=== PATIENT | male | born 1970 | race Caucasian/White ===

== ENCOUNTER 2020-11-19 09:55 | Inpatient (IN) ==
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
[2020-11-19] MEDS ORDERED: OPTIRAY 320 125ml IV ONE (10:09)
--- NOTE | 2020-11-19 10:23 | CT Scan Report ---
NONCONTRAST HEAD CT, HEAD & NECK CTA HISTORY: Stroke Like Symptoms, right-sided weakness, fall TECHNIQUE: Multiaxial CT images of the head were performed both before and after the intravenous admi nistration of contrast to evaluate the major cerebral vessels. Multiaxial CT images of the neck were also performed following the intravenous administration of contrast to evaluate the major cervical ve ssels. Maximum intensity projection images were also obtained. A dose lowering technique was utilized adhering to the principles of ALARA. COMPARISON: None. FINDINGS: HEAD CT: There is no mass, hematoma, midline shift, or acute infarct. No calvarial fractures identifi ed. HEAD CTA: Visualized intracranial internal carotid arteries, distal vertebral arteries, and basilar a rtery are widely patent. There is no significant stenosis, occlusion, or aneurysm seen within the kira ateral ACAs, MCAs, or client hr manager. The major dural venous sinuses appear patent. NECK CTA: The aortic arch and proximal great vessels are widely patent. There is no significant sten osis, occlusion, or dissection identified within the bilateral common carotid, internal carotid, or v ertebral arteries. A 6 mm left thyroid nodule. This does not meet CT criteria for follow-up. Scattere d metallic shrapnel again within the left side of the face, right submandibular location, and upper p revertebral soft tissues. Old nonunited fractures within the left anterior and posterior C1 arch. No acute fractures identified within the cervical spine. The distal left cervical internal carotid arter ies partially obscured by the metallic artifact. IMPRESSION: 1. 1. No acute intracranial abnormality. 2. No significant stenosis, occlusion, or aneurysm within the [place]. 3. No significant stenosis, occlusion, or dissection identified within the carotid or vertebral arter ies. 4. Old post traumatic changes as described above. ACT 112: Negative or not required by law. ACT 112: Negative or not required by law. Electronically signed by: Thad Diana M.D. 11/19/2020 10:22 AM
[2020-11-19 10:24] LABS: Basophils # (auto) 0.01 K/uL (0-0.2); Basophils % (auto) 0.2 %; Eosinophils # (auto) 0.07 K/uL (0-0.5); Eosinophils % (auto) 1.2 %; Hematocrit (blood only) 40.6 % (42-52); Hemoglobin 13.4 g/dL (14.0-18.0); Immature Granulocytes # (auto) 0.01 K/uL (0.00-0.02); Immature Granulocytes % (auto) 0.2 %; Lymphocytes # (auto) 1.49 K/uL (1.2-3.4); Lymphocytes % (auto) 26.4 %; Mean Corpuscular Hemoglobin 26.3 pg (25-34); Mean Corpuscular Volume 79.6 fL (80-100); Mean Platelet Volume 10.3 fL (7.4-10.4); Monocytes # (auto) 0.29 K/uL (0.11-0.59); Monocytes % (auto) 5.1 %; Neutrophils # (auto) 3.78 K/uL (1.4-6.5); Neutrophils % (auto) 66.9 %; Platelet Count 223 K/uL (130-400); RDW Coefficient of Variation 13.7 % (11.5-14.5); RDW Standard Deviation 39.7 fL (36.4-46.3); White Blood Count 5.65 K/uL (4.8-10.8)
--- NOTE | 2020-11-19 10:24 | CT Scan Report ---
NONCONTRAST HEAD CT, HEAD & NECK CTA HISTORY: Stroke Like Symptoms, right-sided weakness, fall TECHNIQUE: Multiaxial CT images of the head were performed both before and after the intravenous admi nistration of contrast to evaluate the major cerebral vessels. Multiaxial CT images of the neck were also performed following the intravenous administration of contrast to evaluate the major cervical ve ssels. Maximum intensity projection images were also obtained. A dose lowering technique was utilized adhering to the principles of ALARA. COMPARISON: None. FINDINGS: HEAD CT: There is no mass, hematoma, midline shift, or acute infarct. No calvarial fractures identifi ed. HEAD CTA: Visualized intracranial internal carotid arteries, distal vertebral arteries, and basilar a rtery are widely patent. There is no significant stenosis, occlusion, or aneurysm seen within the kira ateral ACAs, MCAs, or truck driver teamster. The major dural venous sinuses appear patent. NECK CTA: The aortic arch and proximal great vessels are widely patent. There is no significant sten osis, occlusion, or dissection identified within the bilateral common carotid, internal carotid, or v ertebral arteries. A 6 mm left thyroid nodule. This does not meet CT criteria for follow-up. Scattere d metallic shrapnel again within the left side of the face, right submandibular location, and upper p revertebral soft tissues. Old nonunited fractures within the left anterior and posterior C1 arch. No acute fractures identified within the cervical spine. The distal left cervical internal carotid arter ies partially obscured by the metallic artifact. IMPRESSION: 1. 1. No acute intracranial abnormality. 2. No significant stenosis, occlusion, or aneurysm within the [place]. 3. No significant stenosis, occlusion, or dissection identified within the carotid or vertebral arter ies. 4. Old post traumatic changes as described above. ACT 112: Negative or not required by law. ACT 112: Negative or not required by law. Electronically signed by: Thad Diana M.D. 11/19/2020 10:22 AM
--- NOTE | 2020-11-19 10:24 | CT Scan Report ---
NONCONTRAST HEAD CT, HEAD & NECK CTA HISTORY: Stroke Like Symptoms, right-sided weakness, fall TECHNIQUE: Multiaxial CT images of the head were performed both before and after the intravenous admi nistration of contrast to evaluate the major cerebral vessels. Multiaxial CT images of the neck were also performed following the intravenous administration of contrast to evaluate the major cervical ve ssels. Maximum intensity projection images were also obtained. A dose lowering technique was utilized adhering to the principles of ALARA. COMPARISON: None. FINDINGS: HEAD CT: There is no mass, hematoma, midline shift, or acute infarct. No calvarial fractures identifi ed. HEAD CTA: Visualized intracranial internal carotid arteries, distal vertebral arteries, and basilar a rtery are widely patent. There is no significant stenosis, occlusion, or aneurysm seen within the kira ateral ACAs, MCAs, or superintendent meter tests. The major dural venous sinuses appear patent. NECK CTA: The aortic arch and proximal great vessels are widely patent. There is no significant sten osis, occlusion, or dissection identified within the bilateral common carotid, internal carotid, or v ertebral arteries. A 6 mm left thyroid nodule. This does not meet CT criteria for follow-up. Scattere d metallic shrapnel again within the left side of the face, right submandibular location, and upper p revertebral soft tissues. Old nonunited fractures within the left anterior and posterior C1 arch. No acute fractures identified within the cervical spine. The distal left cervical internal carotid arter ies partially obscured by the metallic artifact. IMPRESSION: 1. 1. No acute intracranial abnormality. 2. No significant stenosis, occlusion, or aneurysm within the [place]. 3. No significant stenosis, occlusion, or dissection identified within the carotid or vertebral arter ies. 4. Old post traumatic changes as described above. ACT 112: Negative or not required by law. ACT 112: Negative or not required by law. Electronically signed by: Thad Diana M.D. 11/19/2020 10:22 AM
[2020-11-19 10:39] LABS: Partial Thromboplastin Ratio 0.9; Partial Thromboplastin Time 24.2 Seconds (21.0-31.0); Prothrombin Time 10.3 Seconds (9.0-12.0)
[2020-11-19 10:41] LABS: Alanine Aminotransferase 51 U/L (12-78); Albumin Level 3.3 gm/dl (3.4-5.0); Aspartate Aminotransferase 22 U/L (15-37); BUN Creatinine Ratio 12.8 (10-20); Blood Urea Nitrogen 16 mg/dl (7-18); Calcium 8.5 mg/dl (8.5-10.1); Carbon Dioxide 27 mmol/L (21-32); Chloride 101 mmol/L (98-107); Creatinine Clr Calc Pharmacy 86.5 ml/min; Est GFR (African American) 76.9 ml/min; Est GFR (Non-African American) 66.4 ml/min; Glucose 275 mg/dl (70-99); Potassium 5.3 mmol/L (3.5-5.1); Sodium 133 mmol/L (136-145)
[2020-11-19 10:46] LABS: Alkaline Phosphatase 83 U/L (45-117); Bilirubin,Total 0.2 mg/dl (0.2-1); Globulin 3.4 gm/dl (2.5-4.0); Total Protein 6.7 gm/dl (6.4-8.2); Troponin I < 0.015 ng/ml (0-0.045)
[2020-11-19] MEDS ORDERED: SODIUM CHLORIDE 0.9% 1000ML 1,000 ML IV ONE (10:52)
[2020-11-19] MEDS ORDERED: PANTOprazole 40 MG TAB PO SCH (11:30)
--- NOTE | 2020-11-19 11:32 | History & Physical Report ---
Date of Service November 19, 2020 Assessment & Plan (1) Stroke: Plan: Right sided weakness, left sided facial droop- deemed not tPA candidate via [facility] - Improving NIHSS- currently 2- dysarthria and left sided facial droop - strength and sensation equal upper and lower bilaterally - no visual field deficits - ASA and Plavix started- continue daily - Atorvastatin 20mg- increase to 40mg daily - Continue with glucose control- HGBA1c pending - goal <180 - Allow permissive HTN tonight- hold lisinopril - No acute findings on CT/CTA of the head and neck - Unable to obtain MRI - Repeat CT scan likely tomorrow - ANDROID SOFTWARE ENGINEER consult for dysphagia screening with continued facial droop- advance diet to carb consistent when able - ECHO - Neurology consult - Telemetry for 24 hours evaluate for afib (2) HTN (hypertension): Plan: As above (3) DMII (diabetes mellitus, type 2): Plan: Continue glargine 20 units daily - sliding scale aspart 100-140 with CF 20, ratio 1:10 - adjust as needed for goal <180 - Hold Metformin (4) HLD (hyperlipidemia): Plan: Increase Atorvastatin to 40mg daily (5) Depression: Plan: Continue Abilify Continue duloxetine (6) Antisocial behaviour: Plan: As above (7) Obesity: Plan: Continue weight loss efforts as outpatient to modify rat exterminator CVD risks. History of Present Illness Primary Care Provider: GIOVANNI Cruz 50 YOM with past medical history of: HLD, opiod abuse, persistent depressive disorder, antisocial personality disorder, neuroleptic induced parkinsonism, DM II on insulin, HLD, Gastritis and obesity. Patient comes in today from [facility] via EMS for concerns of weakness and fall. The patient was a stroke alert on arrival. The patient reports getting up this morning and having some right arm and leg weakness, he does not recall the time- but it is reported that this was around 8AM. He reports going to go to restroom and brush his teeth where he then slipped on some water and fell and hit the left side of his head. In the EMD the patient had CTA of the head and neck performed, CT of the head, CXR, ECG done and telestroke consult with [facility]. He was not a tPA candidate secondary to resolving symptoms and likely time known well. CTA of the neck and head did not reveal any acute intracranial abnormality, stenosis, occlusion, or aneurysm. Patient does have history of shrapnel to the face and an old nonuni jose cruz fracture within the left anterior posterior C1. Patient remains with some left sided facial droop. Appears his weakness has resolved. Currently he has a NIHSS of 2 with facial droop and mild dysarthria. Patient was given ASA in the EMD, will continue aspirin and start Plavix. Patient will be admitted to telemetry for 24 hours to evaluate rhythm, ECHO and neurology consult. Patient will remain NPO until evaluated by ANDROID SOFTWARE ENGINEER. He is noted to have shrapnel to his face, and this will exclude him from getting an MRI. Patient has had his COVID vaccine and his COVID test on admission is: NEGATIVE Allergies Allergy/AdvReac Type Severity Reaction Status Date / Time No Known Drug Allergies Allergy . Unverified 11/19/20 11:06 Home Medications Medication Instructions Recorded Confirmed Type Semglee U-100 Insulin 20 unit SUBCUT QAM 11/19/20 11/19/20 History aripiprazole 10 mg tablet (Abilify) 10 mg PO HS 11/19/20 11/19/20 History aripiprazole 2 mg tablet (Abilify) 2 mg PO HS 11/19/20 11/19/20 History duloxetine 60 mg capsule,delayed 120 mg PO HS 11/19/20 11/19/20 History release insulin regular human 100 unit/mL 1 sliding scale dose SUBCUT 11/19/20 11/19/20 History injection solution (Novolin R USEASDIRECTD Regular U-100 Insulin) lisinopril 5 mg tablet 5 mg PO DAILY 11/19/20 11/19/20 History metformin 1,000 mg tablet 1,000 mg PO BID 11/19/20 11/19/20 History mirtazapine 45 mg tablet 45 mg PO HS 11/19/20 11/19/20 History omeprazole 20 mg capsule,delayed 20 mg PO DAILY 11/19/20 11/19/20 History release aspirin 81 mg tablet,delayed 81 mg PO QAM #30 tab 11/20/20 Rx release atorvastatin 20 mg tablet 40 mg PO HS #0 tab 11/20/20 11/19/20 Rx Past Med/Surg History Medical History (Updated 11/20/20 @ 10:15 by Palomo Alvarez MD) Antisocial behaviour Depression DMII (diabetes mellitus, type 2) HLD (hyperlipidemia) HTN (hypertension) Obesity Surgical History (Updated 11/19/20 @ 11:48 by ALFREDO Adame) H/O hernia repair Family History (Updated 11/19/20 @ 12:05 by ALFREDO Adame) Other Family history non-contributory Social History Smoking Status: Current every day smoker Tobacco Type: Cigarettes Cigarettes Per Day: 1 e cig per day for 2 years.; Second Hand Exposure: Yes; Hx Alcohol Use: No Hx Substance Use: No Preferred Language: Azeri Communication Ability: Effective [place] Nurse Required: No Beliefs That Will Affect Care: None Current Living Situation: Other Current Living Situation Comment: correctional facility. Feels Safe at Home: Yes Assistive Devices: None Review of Systems Review of Systems: REVIEW OF SYSTEMS: Constitutional: No fever, sweats or chills Eyes: No diplopia, no worsening or blurred vision ENT: normal hearing, no trouble swallowing Respiratory: No cough, sputum, dyspnea at rest or on exertion Cardiovascular: No chest pain, tightness or palpitations Abdomen: No pain, nausea, vomiting, diarrhea or constipation Musculoskeletal: No joint pain, calf pain, swelling Neurologic: (+) weakness, numbness/tingling, or balance problems Psychiatric:(+) depression Skin: No rash or itch Physical Exam Physical Exam: PHYSICAL EXAM: General: awake, alert, no apparent distress Head: Normocephalic, atraumatic ENT: PERRLA, EOMI, no pharyngeal exudate, mucous membranes moist Neuro: AAO x 3, mild dysarthria without aphasia strength intact bilaterally 5/5, sensation intact and equal all extremities and dermatomes, no pronator drift, no overshoot with finger to nose, no discoordination, no difficulty reading or object recall. Left sided facial droop. Chest: equal rise and fall of the chest, no accessory muscle use, no heaves or thrills, Clear to auscultation, on room air, Cardiac: Regular rate and rhythm, telemetry reviewed, skin warm dry, cap refill <3 seconds, peripheral pulses +2 no JVD, no murmur, no edema GI: NABS x 4 quadrants, soft, nontender to palpation, no rebound, guarding or tenderness : Spontaneously voiding, no pain, no CVA tenderness, Extremities: Normal inspection, no peripheral edema or erythema, calfs nontender to palpation Psych: Normal mood and affect Skin: no rash or erythema Results & Data Results & Data ([facility]) Vital Signs (Past 12 Hours) Vital Signs Temp Pulse Resp BP Pulse Ox 11/19/20 11:01 104 H 15 157/85 H 96 11/19/20 10:30 114 H 18 158/105 H 96 11/19/20 09:55 37.4 C 120 H 16 143/105 H 96 Laboratory Results Abnormal lab results 11/19/20 11/19/20 11/19/20 Range/Units 10:14 10:15 10:15 Hgb 13.4 L (14.0-18.0) g/dL Hct 40.6 L (42-52) % MCV 79.6 L (80-100) fL Sodium 133 L (136-145) mmol/L Potassium 5.3 H (3.5-5.1) mmol/L Glucose 275 H (70-99) mg/dl POC Glucose 268 H (70-99) mg/dl Albumin 3.3 L (3.4-5.0) gm/dl Diagnostic Findings Head CT 11/19/20 09:[address], HEAD & NECK CTA HISTORY: Stroke Like Symptoms, right-sided weakness, fall TECHNIQUE: Multiaxial CT images of the head were performed both before and after the intravenous administration of contrast to evaluate the major cerebral vessels. Multiaxial CT images of the neck were also performed following the intravenous administration of contrast to evaluate the major cervical vessels. Maximum intensity projection images were also obtained. A dose lowering alexei hnique was utilized adhering to the principles of ALARA. COMPARISON: None. FINDINGS: HEAD CT: There is no mass, hematoma, midline shift, or acute infarct. No calvarial fractures identified. HEAD CTA: Visualized intracranial internal carotid arteries, distal vertebral arteries, and basilar artery are widely patent. There is no significant stenosis, occlusion, or aneurysm seen within the bilateral ACAs, MCAs, or interpretive program coordinator. The major dural venous sinuses appear patent. NECK CTA: The aortic arch and proximal great vessels are widely patent. There is no significant stenosis, occlusion, or dissection identified within the bilateral common carotid, internal carotid, or vertebral arteries. A 6 mm left thyroid nodule. This does not meet CT criteria for follow-up. Scattered metallic shrapnel again within the left side of the face, right submandibular location, and upper prevertebral soft tissues. Old nonunited fractures within the left anterior and posterior C1 arch. No acute fractures identified within the cervical spine. The distal left cervical internal carotid arteries partially obscured by the metallic artifact. IMPRESSION: 1. 1. No acute intracranial abnormality. 2. No significant stenosis, occlusion, or aneurysm within the [place]. 3. No significant stenosis, occlusion, or dissection identified within the carotid or vertebral arteries. 4. Old post traumatic changes as described above. ACT 112: Negative or not required by law. ACT 112: Negative or not required by law. Electronically signed by: Thad Diana M.D. 11/19/2020 10:22 AM Head CTA 11/19/20 09:[address], HEAD & NECK CTA HISTORY: Stroke Like Symptoms, right-sided weakness, fall TECHNIQUE: Multiaxial CT images of the head were performed both before and after the intravenous administration of contrast to evaluate the major cerebral vessels. Multiaxial CT images of the neck were also performed following the intravenous administration of contrast to evaluate the major cervical vessels. Maximum intensity projection images were also obtained. A dose lowering technique was utilized adhering to the principles of ALARA. COMPARISON: None. FINDINGS: HEAD CT: There is no mass, hematoma, midline shift, or acute infarct. No calvarial fractures identified. HEAD CTA: Visualized intracranial internal carotid arteries, distal vertebral arteries, and basilar artery are widely patent. There is no significant stenosis, occlusion, or aneurysm seen within the bilateral ACAs, MCAs, or interpretive program coordinator. The major dural venous sinuses appear patent. NECK CTA: The aortic arch and proximal great vessels are widely patent. There is no significant stenosis, occlusion, or dissection identified within the bilateral common carotid, internal carotid, or vertebral arteries. A 6 mm left thyroid nodule. This does not meet CT criteria for follow-up. Scattered metallic shrapnel again within the left side of the face, right submandibular location, and upper prevertebral soft tissues. Old nonunited fractures within the left anterior and posterior C1 arch. No acute fractures identified within the cervical spine. The distal left cervical internal carotid arteries partially obscured by the metallic artifact. IMPRESSION: 1. 1. No acute intracranial abnormality. 2. No significant stenosis, occlusion, or aneurysm within the [place]. 3. No significant stenosis, occlusion, or dissection identified within the carotid or vertebral arteries. 4. Old post traumatic changes as described above. ACT 112: Negative or not required by law. ACT 112: Negative or not required by law. Electronically signed by: Thad Diana M.D. 11/19/2020 10:22 AM Neck CTA 11/19/20 09:[address], HEAD & NECK CTA HISTORY: Stroke Like Symptoms, right-sided weakness, fall TECHNIQUE: Multiaxial CT images of the head were performed both before and after the intravenous administration of contrast to evaluate the major cerebral vessels. Multiaxial CT images of the neck were also performed following the intravenous administration of contrast to evaluate the major cervical vessels. Maximum intensity projection images were also obtained. A dose lowering technique was utilized adhering to the principles of ALARA. COMPARISON: None. FINDINGS: HEAD CT: There is no mass, hematoma, midline shift, or acute infarct. No calvarial fractures identified. HEAD CTA: Visualized intracranial internal carotid arteries, distal vertebral arteries, and basilar artery are widely patent. There is no significant stenosis, occlusion, or aneurysm seen within the bilateral ACAs, MCAs, or interpretive program coordinator. The major dural venous sinuses appear patent. NECK CTA: The aortic arch and proximal great vessels are widely patent. There is no significant stenosis, occlusion, or dissection identified within the bilateral common carotid, internal carotid, or vertebral arteries. A 6 mm left thyroid nodule. This does not meet CT criteria for follow-up. Scattered metallic shrapnel again within the left side of the face, right submandibular location, and upper prevertebral soft tissues. Old nonunited fractures within the left anterior and posterior C1 arch. No acute fractures identified within the cervical spine. The distal left cervical internal carotid arteries partially obscured by the metallic artifact. IMPRESSION: 1. 1. No acute intracranial abnormality. 2. No significant stenosis, occlusion, or aneurysm within the [place]. 3. No significant stenosis, occlusion, or dissection identified within the carotid or vertebral arteries. 4. Old post traumatic changes as described above. ACT 112: Negative or not required by law. ACT 112: Negative or not required by law. Electronically signed by: Thad Diana M.D. 11/19/2020 10:22 AM Medications Administered Home Medications Semglee U-100 Insulin 20 unit SUBCUT QAM 11/19/20 [History Confirmed 11/19/20] aripiprazole 10 mg tablet (Abilify) 10 mg PO HS 11/19/20 [History Confirmed 11/19/20] aripiprazole 2 mg tablet (Abilify) 2 mg PO HS 11/19/20 [History Confirmed 11/19/20] atorvastatin 20 mg tablet 20 mg PO HS 11/19/20 [History Confirmed 11/19/20] duloxetine 60 mg capsule,delayed release 120 mg PO HS 11/19/20 [History Confirmed 11/19/20] insulin regular human 100 unit/mL injection solution (Novolin R Regular U-100 Insulin) 1 sliding scale dose SUBCUT USEASDIRECTD 11/19/20 [History Confirmed 11/19/20] lisinopril 5 mg tablet 5 mg PO DAILY 11/19/20 [History Confirmed 11/19/20] metformin 1,000 mg tablet 1,000 mg PO BID 11/19/20 [History Confirmed 11/19/20] mirtazapine 45 mg tablet 45 mg PO HS 11/19/20 [History Confirmed 11/19/20] omeprazole 20 mg capsule,delayed release 20 mg PO DAILY 11/19/20 [History Confirmed 11/19/20] Active Medications Sodium Chloride (Nss 1000ml) 1,000 mls @ 999 mls/hr IV .Q1H1M ONE Stop: 11/19/20 11:52 Last Admin: 11/19/20 11:08 Dose: 999 mls/hr Documented by: Insulin Glargine (Lantus Per Unit Charge) 20 units SQ QAM [facility] Stop: 12/20/20 08:59 Pantoprazole Sodium (Pantoprazole 40 Mg Tab) 20 mg PO DAILY [facility] Stop: 12/19/20 11:29 Discontinued Medications Sodium Chloride (Nss 1000ml) 1,000 mls @ 999 mls/hr IV .Q1H1M ONE Stop: 11/19/20 11:52 Last Admin: 11/19/20 11:08 Dose: 999 mls/hr Documented by: [id number] Ioversol (Optiray 320 125ml) 120 ml IV ONCE ONE Stop: 11/19/20 10:10 Last Admin: 11/19/20 10:09 Dose: 120 ml Documented by: [id number] Additional Comments: Sinus tachycardia Low voltage QRS Borderline ECG No previous ECGs available Code Status & VTE Plan Code Status CODE: FULL VTE: SCDs, asa, plavix, ambulation VTE Prophylaxis Plan VTE Prophylaxis will be ordered: Yes Supervising Physician Co-Signing Physician Notes Attending addendum: I have physically seen this patient, have supervised the KURTIS's activities, and agree with the H&P unless as otherwise noted. Assessment and Plan: Stroke/right-sided weakness/left-sided facial droop- The patient will be admitted to telemetry for serial cardiac enzymes, serial EKG's, cardiac rhythm monitoring and a 2-D echocardiogram with Dopplers. Not a TPA candidate per [facility] stroke neurology Admit to monitored bed with stroke that TPA order set Consult PT/OT/speech therapy/neurology Increase atorvastatin from 20 to 40 mg daily Continue aspirin and Plavix Permissive hypertension overnight Repeat CT scan in 24 hours Diabetes mellitus- Insulin glargine 20 units subcu daily Placed on Accu-Cheks before meals and at bedtime with NovoLog coverage per scale Hold Metformin Check hemoglobin A1c Hyperlipidemia- As noted above increase atorvastatin from 20 to 40 mg daily Check a fasting lipid panel Remaining orders and notations as noted PG Care Time/CCT Total # of Minutes Spent Total Time Spent with Patient: Total time spent is greater than 50% in coordination of care (as documented) at patient's floor/unit and/or counseling patient: Coding Level of Care Code 74502 Initial Inpt Care Lvl 3 Diagnoses Stroke I63.9 HTN (hypertension) I10 DMII (diabetes mellitus, type 2) E11.9 HLD (hyperlipidemia) E78.5 Depression F32.A Antisocial behaviour Obesity E66.9
[2020-11-19] MEDS ORDERED: CARBOHYDRATES FOR HYPOGLYCEMIA PO PRN (20:08)
[2020-11-19] MEDS ORDERED: PHARMACIST DISCHARGE MED REC CONSULT PRN (20:08)
[2020-11-19] MEDS ORDERED: GLUCOSE 40% GEL 15 GM TUBE PO PRN (20:08)
[2020-11-19] MEDS ORDERED: GLUCOSE 10 TABS/TUBE PO PRN (20:08)
[2020-11-19] MEDS ORDERED: ONDANSETRON INJ 2 MG/ML 2 ML VIAL IV PRN (20:08)
[2020-11-19] MEDS ORDERED: CLOPIDOGREL BISULFATE 75 MG TAB PO SCH (20:08)
[2020-11-19] MEDS ORDERED: ACETAMINOPHEN 325 MG TAB PO PRN (20:08)
[2020-11-19] MEDS ORDERED: DEXTROSE 50% 50 ML SYRINGE IV PRN (20:08)
[2020-11-19] MEDS ORDERED: GLUCAGON FOR INJ 1 MG VIAL SQ PRN (20:08)
[2020-11-19] MEDS ORDERED: ARIPIprazole 1 MG/ML ORAL SOLN 150 ML BTL PO SCH (21:00)
[2020-11-19] MEDS ORDERED: MIRTAZAPINE SOLTAB 15 MG PO SCH (21:00)
[2020-11-19] MEDS ORDERED: DULoxetine HCL 60 MG CAP PO SCH (21:00)
[2020-11-19] MEDS ORDERED: ATORVASTATIN 40 MG TAB PO SCH (21:00)
[2020-11-19] MEDS: INSULIN ASPART 100 UNITS/ML 3 ML PEN SC SCH ×2 (21:46→21:47)
[2020-11-20 06:19] LABS: Basophils # (auto) 0.01 K/uL (0-0.2); Basophils % (auto) 0.1 %; Eosinophils # (auto) 0.11 K/uL (0-0.5); Eosinophils % (auto) 1.6 %; Hematocrit (blood only) 41.7 % (42-52); Hemoglobin 14.9 g/dL (14.0-18.0); Immature Granulocytes # (auto) 0.01 K/uL (0.00-0.02); Immature Granulocytes % (auto) 0.1 %; Lymphocytes # (auto) 2.95 K/uL (1.2-3.4); Lymphocytes % (auto) 43.3 %; Mean Corpuscular Hemoglobin 28.4 pg (25-34); Mean Corpuscular Hgb Conc 35.7 g/dL (32-36); Mean Corpuscular Volume 79.4 fL (80-100); Mean Platelet Volume 10.3 fL (7.4-10.4); Monocytes # (auto) 0.41 K/uL (0.11-0.59); Neutrophils # (auto) 3.33 K/uL (1.4-6.5); Neutrophils % (auto) 48.9 %; Platelet Count 227 K/uL (130-400); RDW Coefficient of Variation 13.7 % (11.5-14.5); RDW Standard Deviation 39.1 fL (36.4-46.3); Red Blood Count 5.25 M/uL (4.7-6.1); White Blood Count 6.82 K/uL (4.8-10.8)
[2020-11-20 07:00] LABS: BUN Creatinine Ratio 12.8 (10-20); Calcium 8.4 mg/dl (8.5-10.1); Creatinine Clr Calc Pharmacy 101.7 ml/min; Est GFR (African American) 93.6 ml/min; Est GFR (Non-African American) 80.7 ml/min; Magnesium 2.2 mg/dl (1.8-2.4); Potassium 4.3 mmol/L (3.5-5.1)
[2020-11-20 07:30] LABS: Estimated Average Glucose 223 mg/dl; Hemoglobin A1C 9.4 % (4.5-5.6)
--- NOTE | 2020-11-20 08:29 | Hospitalist Progress Note ---
Date of Service November 20, 2020 Assessment & Plan (1) Stroke: Plan: Right sided weakness, left sided facial droop- deemed not tPA candidate via [facility] telestroke - Improving NIHSS- currently 2- dysarthria and left sided facial droop - strength and sensation equal upper and lower bilaterally - no visual field deficits - ASA and Plavix started- continue daily - Atorvastatin 20mg- increase to 40mg daily - Continue with glucose control- HGBA1c pending - goal <180 - Allow permissive HTN tonight- hold lisinopril - No acute findings on CT/CTA of the head and neck - Unable to obtain MRI due to shrapnel in face - Repeat CT scan likely tomorrow - DOUBLE HEAD MACHINE OPERATOR consult for dysphagia screening with continued facial droop- advance diet to carb consistent when able - ECHO - Neurology consult - Telemetry for 24 hours evaluate for afib (2) HTN (hypertension): Plan: As above (3) DMII (diabetes mellitus, type 2): Plan: Continue glargine 20 units daily - sliding scale aspart 100-140 with CF 20, ratio 1:10 - adjust as needed for goal <180 - Hold Metformin (4) HLD (hyperlipidemia): Plan: Increase Atorvastatin to 40mg daily (5) Depression: Plan: Continue Abilify Continue duloxetine (6) Antisocial behaviour: Plan: As above (7) Obesity: Plan: Continue weight loss efforts as outpatient to modify rat exterminator CVD risks. Admission and Anticipated Discharge Date Admission Date: November 19, 2020 Results & Data Results & Data ([facility]) Vital Signs (Past 12 Hours) Vital Signs Temp Pulse Pulse Resp BP Pulse Ox 11/20/20 07:29 98.4 F 87 18 137/72 95 11/20/20 03:29 97.7 F 93 H 16 155/88 H 94 11/19/20 22:35 97.3 F L 67 16 180/82 H 95 11/19/20 22:19 100 H PG Care Time/CCT Total # of Minutes Spent Total Time Spent with Patient: Total time spent is greater than 50% in coordination of care (as documented) at patient's floor/unit and/or counseling patient: Coding Diagnoses Stroke I63.9 HTN (hypertension) I10 Hypertension type: unspecified DMII (diabetes mellitus, type 2) E11.9 Diabetes mellitus rat exterminator insulin use: with rat exterminator use HLD (hyperlipidemia) E78.5 Depression F32.A Antisocial behaviour Obesity E66.9 (1) HTN (hypertension) Hypertension type: unspecified Qualified Code(s): I10 - Essential (primary) hypertension (2) DMII (diabetes mellitus, type 2) Diabetes mellitus snf insulin use: with snf use
[2020-11-20] MEDS ORDERED: PANTOprazole 40 MG TAB PO SCH (09:00)
[2020-11-20] MEDS ORDERED: INSULIN GLARGINE SOLOSTAR 100 UNITS/ML 3 ML PEN SQ SCH (09:00)
[2020-11-20] MEDS ORDERED: ASPIRIN 81 MG ECTAB PO SCH (09:00)
[2020-11-20] MEDS ORDERED: LANTUS PER UNIT CHARGE SQ SCH (09:00)
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
[2020-11-20] MEDS: INSULIN ASPART 100 UNITS/ML 3 ML PEN SC SCH ×2 (11:10→13:08)
[2020-11-20] MEDS: PANTOprazole 40 MG in SYRINGE 0 ML IV SCH ×2 (11:11→13:04)
--- NOTE | 2020-11-20 13:02 | XCELERA ---
[id number]
--- NOTE | 2020-11-20 17:09 | Electrocardiogram Report ---
Test Reason : Blood Pressure : / mmHG Vent. Rate : 109 BPM Atrial Rate : 109 BPM P-R Int : 152 ms QRS Dur : 084 ms QT Int : 306 ms P-R-T Axes : 044 005 066 degrees QTc Int : 412 ms Sinus tachycardia Low voltage QRS Borderline ECG No previous ECGs available Confirmed by Milad Dumont ([id number]) on 11/20/2020 5:08:58 PM Referred By: Anthony SCI Confirmed By:Jaya Dumont
--- NOTE | 2020-11-20 19:02 | Discharge Summary ---
Date of Service November 20, 2020 Admission HPI Per Admitting Provider 50 YOM with past medical history of: HLD, opiod abuse, persistent depressive disorder, antisocial personality disorder, neuroleptic induced parkinsonism, DM II on insulin, HLD, Gastritis and obesity. Patient comes in today from [facility] ([place] via EMS for concerns of weakness and fall. The patient was a stroke alert on arrival. The patient reports getting up this morning and having some right arm and leg weakness, he does not recall the time- but it is reported that this was around 8AM. He reports going to go to restroom and brush his teeth where he then slipped on some water and fell and hit the left side of his head. In the EMD the patient had CTA of the head and neck performed, CT of the head, CXR, ECG done and telestroke consult with [facility]. He was not a tPA candidate secondary to resolving symptoms and likely time known well. CTA of the neck and head did not reveal any acute intracranial abnormality, stenosis, occlusion, or aneurysm. Patient does have history of shrapnel to the face and an old no nunited fracture within the left anterior posterior C1. Patient remains with some left sided facial droop. Appears his weakness has resolved. Currently he has a NIHSS of 2 with facial droop and mild dysarthria. Patient was given ASA in the EMD, will continue aspirin and start Plavix. Patient will be admitted to telemetry for 24 hours to evaluate rhythm, ECHO and neurology consult. Patient will remain NPO until evaluated by PHARMACOLOGY TEACHER. He is noted to have shrapnel to his face, and this will exclude him from getting an MRI. Patient has had his COVID vaccine and his COVID test on admission is: NEGATIVE Principal Diagnosis tia possible post concussive syndrome Discharge Exam The patient appeared well Vital signs as documented. Lungs are clear to auscultation and appear unlabored Cardiac exam, Rhythm is regular.. No murmurs, rubs or gallops. Abdominal exam reveals normal bowel sounds, soft non tender, no masses Extremities are nonedematous and both pedal pulses are normal. Neurologic exam is alert and oriented, no focal loss of strength or sensation Skin is without bruises or rashes Psychologically is without concerns for anxiety or depression. Discharge Data Allergies Allergy/AdvReac Type Severity Reaction Status Date / Time No Known Drug Allergies Allergy . Unverified 11/19/20 11:06 Consultations 11/19/20 11:03 ED Decision to Admit Stat 11/19/20 20:08 Consult Neurology Routine Ordered Studies 11/19/20 09:52 CT angio head w con Stat CT angio neck with con Stat CT head/brain wo con Stat Hospital Course (1) Stroke: Right sided weakness, left sided facial droop- deemed not tPA candidate via [facility] telestroke would be TIA based upon his risk factors however patient feels is from a fall and striking his head on the ground awakening with some grogginess and some slurred speech. He feels he is a crooked smile at his baseline is always had a facial asymmetry based upon his history - Improving NIHSS- currently 2- dysarthria and left sided facial droop - strength and sensation equal upper and lower bilaterally - no visual field deficits - ASA - continue daily - Atorvastatin 20mg- increase to 40mg daily Neurology did see the patient feels is appropriate to return to the [facility] on escalating doses of atorvastatin daily aspirin working on lifestyle modification and if he would improve his obesity and diabetic care he may be able to get off these medications in the future Cardiogram was performed but he habitus prevents an excellent study no significant abnormalities were seen (2) HTN (hypertension): He is on lisinopril lifestyle and dietary modification particularly salt reduction was recommended consideration of escalating lisinopril if blood pressure is not better controlled (3) DMII (diabetes mellitus, type 2): Returns to Metformin and insulin sliding scale (4) HLD (hyperlipidemia): Increase Atorvastatin to 40mg daily (5) Depression: Continue Abilify Continue duloxetine (6) Antisocial behaviour: As above (7) Obesity: Continue weight loss efforts as outpatient to modify jail CVD risks. Total Time Total Time Spent Total Time Spent (In Minutes): It required greater than 30 minutes to prepare this patient for discharge Discharge Plan Discharge Items [facility] Disposition: [facility] Reason For Visit: CVA Discharge Diagnosis: tia Activity: Resume your previous activity Non-emergency contact: Primary Care Provider Call non-emergency contact if: you have any medication questions and your symptoms worsen Follow-up/Referrals: Anthony DAVILA [Primary Care Provider] - Diet: Carb Consistent or DM2 Addtl Attending Provider Instructions: you have been diagnosed with a stroke like symptom, it maybe from your fall but please consider taking medication to reduce your risk of stroke while you continue to work on your diabetes and reducing your weight please have your blood pressure monitored to see if you may need your lisinipril increased, weight loss and low salt diet can also help reduce your blood glucose. Pending Studies at Discharge: No Stand-Alone Forms: My [facility] Skilled Items Patient informed of condition?: Yes Discharge Level of Care: Other Communicable Disease: No Discharge Prognosis: Stable Lines: None Urinary Catheter: No Medications and DC Order Prescriptions: New aspirin 81 mg Tablet,Delayed Release (Dr/Ec) 81 mg PO QAM Qty: 30 RF: 0 Continued mirtazapine 45 mg Tablet 45 mg PO HS RF: 0 aripiprazole [Abilify] 10 mg Tablet 10 mg PO HS RF: 0 duloxetine 60 mg Capsule,Delayed Release(Dr/Ec) 120 mg PO HS RF: 0 aripiprazole [Abilify] 2 mg Tablet 2 mg PO HS RF: 0 Semglee U-100 Insulin 20 unit subcut QAM RF: 0 metformin 1,000 mg Tablet 1,000 mg PO BID RF: 0 Novolin R Regular U-100 Insuln 100 unit/mL Solution 1 sliding scale dose SUBCUT USEASDIRECTD RF: 0 omeprazole 20 mg Capsule,Delayed Release(Dr/Ec) 20 mg PO DAILY RF: 0 lisinopril 5 mg Tablet 5 mg PO DAILY RF: 0 Changed atorvastatin 20 mg Tablet 40 mg PO HS Qty: 0 RF: 0 Discharge Orders: Discharge Order (Routine); Ordered 11/20/20 Ordered By: Tristan Munoz Admission Data Admit Date/Time: 11/19/20 11:27 Attending Provider: Tristan Munoz Admit Provider: Jarrod Mcdonough Primary Care Provider: Anthony DAVILA Other Providers: Jarrod Mcdonough ; Palomo Alvarez Other Interventions: Discharge Summary Assessment (RN) Last Done: 11/20/20 16:38 Coding Level of Care Code D/C DAY MANAGEMENT >30 MINS Diagnoses Stroke I63.9 HTN (hypertension) I10 Hypertension type: unspecified DMII (diabetes mellitus, type 2) E11.9 Diabetes mellitus jail insulin use: with terminal block assembler use HLD (hyperlipidemia) E78.5 Depression F32.A Antisocial behaviour Obesity E66.9
--- NOTE | 2020-11-21 06:55 | Electrocardiogram Report ---
Test Reason : Blood Pressure : / mmHG Vent. Rate : 089 BPM Atrial Rate : 089 BPM P-R Int : 138 ms QRS Dur : 072 ms QT Int : 348 ms P-R-T Axes : 058 024 066 degrees QTc Int : 423 ms Normal sinus rhythm Nonspecific T wave abnormality Abnormal ECG When compared with ECG of 19-NOV-2020 10:22, (unconfirmed) No significant change was found Confirmed by Milad Dumont ([id number]) on 11/21/2020 6:54:56 AM Referred By: Anthony SCI Confirmed By:Jaya Dumont
== END 2020-11-20 17:58 | DRG 69 ==
LOC: ED 09:55 → 2N 11:27 → SUATTDRO 11:27 → 2N 19:23